=== PATIENT | male | born 1995 | race Caucasian/White ===

== ENCOUNTER 2021-01-09 15:51 | Emergency (ER) | payer OTHER, SELFPAY ==
[2021-01-09] VITALS (9 sets, daily range): BP systolic 102–125; BP diastolic 58–69; PULSE 76–89; RESP 16–26; TEMP 36.7; O2SAT 98–100
--- NOTE | ~2021-01-09 | XR_ITS ---
EXAMINATION: XR chest 2V 01/09/2021 18:31 INDICATION: Sternal chest pain and dyspnea PROCEDURE: 2 view chest COMPARISON: No prior studies for comparison. FINDINGS: The lungs are clear. The cardiomediastinal silhouette is within normal limits. There are no pleural effusions. There is no pneumothorax suspected. IMPRESSION: 1: NO ACUTE CARDIOPULMONARY DISEASE. Reviewed, dictated and finalized at location A.
[2021-01-09 16:15] LABS: Glucose Point of Care 407 mg/dl (65-105)
[2021-01-09 16:25] LABS: Basophils Absolute Auto 0.1 K/mm3 (0.0-0.1); Basophils Percent Auto 0.5 % (0.2-1.2); Eosinophils Absolute Auto 0.1 K/mm3 (0-0.3); Eosinophils Percent Auto 1.3 % (0-4.4); Hematocrit 39.7 % (42.0-52.0); Hemoglobin 13.6 g/dL (14.0-18.0); Immature Granulocyte Absolute 0.04 K/mm3 (0.00-0.031); Immature Granulocyte Percent A 0.4 % (0-0.5); Lymphocytes Absolute Auto 1.62 K/mm3 (0.9-3.2); Lymphocytes Percent Auto 14.6 % (18.3-44.2); Mean Corpuscular HGB Conc 34.3 g/dl (32-36); Mean Corpuscular Hemoglobin 28.9 pg (26-34); Mean Corpuscular Volume 84.3 fl (80-100); Mean Platelet Volume 9.3 fl (7.4-10.4); Monocytes Absolute Auto 0.6 K/mm3 (0.1-0.6); Monocytes Percent Auto 5.1 % (2.6-8.5); Neutrophils Absolute Auto 8.7 K/mm3 (1.3-6.7); Neutrophils Percent Auto 78.1 % (45.5-73.1); Platelet Count Result 241 k/mm3 (150-375); Red Blood Count 4.71 M/mm3 (4.6-6.20); Red Cell Distribution Width 11.5 % (11.5-14.5); White Blood Count 11.1 K/mm3 (4.5-10.0)
[2021-01-09 16:40] LABS: Alanine Aminotransferase 26 U/L (4-50); Albumin Level 4.7 g/dL (3.5-5.1); Alkaline Phosphatase 81 U/L (38-126); Anion Gap 11 mmol/L (8-16); Aspartate Amino Transferase 31 U/L (17-59); Bilirubin,Total 0.9 mg/dL (0.2-1.3); Blood Urea Nitrogen 15 mg/dL (9-20); Calcium 9.5 mg/dL (8.4-10.2); Carbon Dioxide 25 mmol/L (22-30); Chloride 97 mmol/L (98-107); Estimated CRCL calculation 122 ml/min; Estimated Glomerular Filt Rate > 60; Glucose 421 mg/dL (75-110); Magnesium 1.7 mg/dL (1.6-2.3); Phosphorus 3.1 mg/dL (2.5-4.5); Potassium 5.1 mmol/L (3.4-5.0); Sodium 133 mmol/L (137-145)
[2021-01-09 16:45] LABS: Beta-Hydroxybutyrate/Acetoacetate 1.27 mmol/L (0.02-0.27)
[2021-01-09 16:53] LABS: Add Urine Microscopic? YES; Appearance Urine Clear (Clear); Bilirubin Urine Negative (Negative); Blood Urine Negative (Negative); Color Urine Colorless (Yellow); Glucose Urine UA 3+ mg/dL (Negative); Ketones Urine 1+ mg/dL (Negative); Leukocyte Esterase Ur Negative LEU/UL (Negative); Nitrate Urine Negative (Negative); Protein Urine Negative (Negative); RBC Urine 0-2 /hpf (0-2); Specific Grav Ur 1.017 (1.001-1.035); Urobilinogen Urine Negative mg/dL (<2.0); WBC Urine 0-3 /hpf
--- NOTE | 2021-01-09 18:22 | ECG_ITS ---
Measurements Intervals [place] Rate: 82 P: 31 VA: 140 QRS: 42 QRSD: 77 T: 25 QT: 374 QTc: 437 Interpretive Statements SINUS RHYTHM NORMAL ECG Electronically Signed On 01-10-2021 6:55:44 CDT by Jacky Gaspar D.O.
--- NOTE | 2021-01-09 18:32 | ED.RECABL ---
HPI - Recheck/Abnormal Lab/Rx General Chief Complaint: Recheck/Abnormal Lab/Rx Stated Complaint: DKA Time Seen by Provider: 01/09/21 17:45 Source: patient and RN notes reviewed Mode of arrival: ambulatory Limitations: no limitations History of Present Illness HPI narrative: This is a 25 year old male with DM type 1 who presents for evaluation of possible DKA. Patient states around 1 am he developed nausea and mid abdominal pain. He noticed that his BS was elevated so he gave himself 5 units insulin, but his blood sugar increased. She also reports chest tightness at that time. He denies fever, chills, cough, diarrhea. He is worried that he may be in DKA. Related Data Home Medications Medication Instructions Recorded Confirmed albuterol sulfate 90 mcg/actuation 2 puff INHALATION Q4-6H PRN gm 11/09/19 06/07/20 aerosol inhaler subcutaneous insulin pump #1 each 12/20/19 06/07/20 blood sugar diagnostic #10 each 04/25/20 04/25/20 Allergies Allergy/AdvReac Type Severity Reaction Status Date / Time No Known Allergies Allergy Verified 06/06/20 15:39 Review of Systems Review of Systems: All systems reviewed & are unremarkable except as noted in HPI and below Constitutional: Constitutional: Denies chills and Denies fever(s) Cardiovascular: Cardiovascular: Reports chest pain Respiratory: Respiratory: Denies cough and Reports dyspnea Gastrointestinal: Gastrointestinal: Reports abdominal pain, Denies diarrhea, Reports nausea and Denies vomiting PMF Past Medical History Medical History (Updated 01/09/21 @ 21:20 by Sun Gilliam MD) Asthma Diabetes mellitus type 1, uncontrolled Tonsillectomy planned Family History Family History Mother Patient's mother is in good health Father Patient's father is in good health Sibling Depression Other Diabetes mellitus Social History Social History Smoking status: Never smoker Second hand tobacco smoke exposure: No Alcohol intake: never Gender identity (if verbalized by the patient): Male Exam Const: General: no acute distress and alert Orientation/consciousness: patient oriented x3 Eyes: Pupils: Equal, round and reactive pupils present EOM: EOMs intact bilaterally Chest: Chest palpation & inspection: normal inspection of the chest Resp: Effort & Inspection: normal respiratory effort and no retractions Auscultation: clear to auscultation bilaterally Cardio: Rate: regular rate Rhythm: regular rhythm Heart sounds: no murmurs GI: GI Palp: Yes Soft to palpation, No Tenderness to palpation present (GI), No Guarding due to palpation present (GI) and No Rigid due to palpation Auscultation: normal bowel sounds Neuro: General: patient oriented x3, moves all extremities and CN's II-XI intact bilaterally Psych: Mental Status: mental status grossly normal Affect: normal affect Course Reevaluation(s) Reevaluation #1: Patient has been given 2 L IVF with SQ insulin. Patient was not acidotic and he does not have widened AGAP so he does not appear to be in DKA. He will be discharged home. His abdominal exam was normal so no imaging felt necessary. Date: 01/09/21 Time: 21:17 Vital Signs Vital signs: Vital Signs Temperature 98.1 F 01/09/21 16:09 Pulse Rate 76 01/09/21 16:09 Respiratory Rate 18 01/09/21 16:09 Blood Pressure 125/69 01/09/21 16:09 Pulse Oximetry 98 01/09/21 16:09 Temperature 98.1 F 01/09/21 16:09 Pulse Rate 80 01/09/21 21:40 Respiratory Rate 16 01/09/21 21:40 Blood Pressure 111/58 L 01/09/21 21:40 Pulse Oximetry 99 01/09/21 21:40 MDM - Recheck/Abnormal Lab/Rx Lab Data Attestation: I reviewed the patient's lab results. Result diagrams: 01/09/21 16:16 01/09/21 20:50 Labs: Lab Results 01/09/21 01/09/21 01/09/21 Range/Units 16:12 16:1
[2021-01-09 18:41] LABS: Lipase 52 U/L (23-300)
[2021-01-09 18:49] LABS: D Dimer 0.27 ug/mL (<0.48)
[2021-01-09] MEDS: ONDANSETRON INJ 4 MG/2 ML VIAL IV PUSH (18:49)
[2021-01-09] MEDS: SODIUM CHLORIDE 0.9% IV 1,000 ML 999 ML IV CONT ×2 (18:50)
[2021-01-09 18:53] LABS: Troponin I < 0.012 ng/mL (0.000-0.034)
[2021-01-09 18:57] LABS: Device ROOM AIR; Fractional Inspired Oxygen 21 %; HCO3 VBG 21.1 mEq/l (24.0-30.0); PCO2 VBG 33.9 mmHg (42.0-48.0); PO2 VBG 70.4 mmHg (35.0-45.0); pH VBG 7.411 (7.300-7.400)
[2021-01-09 19:58] LABS: Glucose Point of Care 275 mg/dl (65-105)
[2021-01-09] MEDS: INSULIN HUMAN REGULAR (*BKC) 100 UNITS/ML SUB-Q (20:54)
[2021-01-09 21:11] LABS: Anion Gap 8 mmol/L (8-16); Blood Urea Nitrogen 13 mg/dL (9-20); Calcium 8.6 mg/dL (8.4-10.2); Carbon Dioxide 23 mmol/L (22-30); Chloride 104 mmol/L (98-107); Estimated CRCL calculation 140 ml/min; Estimated Glomerular Filt Rate > 60; Glucose 295 mg/dL (75-110); Potassium 4.5 mmol/L (3.4-5.0); Sodium 135 mmol/L (137-145)
== END 2021-01-09 21:40 | disposition home or self-care (01) ==
PROVIDERS: Emergency Medicine; Emergency Provider General Practice; PCP Physician Assistant
DX: E10.65 Type 1 diabetes mellitus with hyperglycemia (principal); Z79.4 Long term (current) use of insulin; J45.909 Unspecified asthma, uncomplicated; E86.0 Dehydration
CPT/HCPCS: 36415; 71046; 80048; 80053; 81001; 82010; 82803; 82948; 83690; 83735; 84100; 84484; 85025; 85380; 93005; 96361; 96374; 99284; J1815; J2405; J7030

== ENCOUNTER 2021-08-31 11:11 | Outpatient (RCR) | payer OTHER, SELFPAY ==
[2021-08-31 15:47] VITALS: BP 127/67; PULSE 90; RESP 18; TEMP 36.9; O2SAT 99
[2021-08-31 16:53] VITALS: BP 117/63
== END 2021-08-31 17:00 ==
LOC: AMCINF 11:11
PROVIDERS: PCP Internal Medicine; Visit Provider Internal Medicine Hematology & Oncology
DX: U07.1 COVID-19 (principal); E11.9 Type 2 diabetes mellitus without complications
CPT/HCPCS: M0243; Q0244